=== PATIENT | female | born 1990 | race Caucasian/White ===

== ENCOUNTER 2018-09-20 09:31 | Emergency (ER) | payer MEDICAID ==
[~2018-09-20] VITALS: Ht 165.1 cm; Wt 59.7 kg
[2018-09-20 09:42] VITALS: RESP 18; Ht 165.1 cm; Wt 59.7 kg
[2018-09-20] MEDS ORDERED: morphine 4 MG/ML VIAL IV STA (11:24)
[2018-09-20] MEDS ORDERED: ONDANSETRON 4 MG INJ IV STA (11:24)
[2018-09-20] MEDS ORDERED: SOD CHLORIDE 0.9% 1,000 ML IV STA (11:24)
[2018-09-20] MEDS ORDERED: IBUP800T48 PO (12:46)
[2018-09-20] MEDS ORDERED: NITR-58 PO (12:47)
--- NOTE | 2018-09-20 12:58 | ERD ---
ER Documentation Chief Complaint Chief Complaint VAG BLEED ,PELVIC PAIN , ONSET LAST NIGHT , 6 WEEKS PREG HPI 27-year-old female presents with vaginal bleeding and pelvic pain. Patient states that she has been bleeding since last night. She is been having pelvic pain since the and was seen at her [facility] on 15 September. Patient's beta quant on the was 436. She is being seen at [facility]. Patient was seen by BEEF CATTLE SPECIALIST Evangelina Schmitz. Denies medical problems. Surgical history: C- section. Social history denies. A0. ROS All systems reviewed and are negative except as per history of present illness. Medications Home Meds Active Scripts Nitrofurantoin Monohyd Macrocr* (Macrobid*) 100 Mg Capsr, 100 MG PO BID for 14 Days, CAP Prov:CHAYA VELASQUEZ PA-C 09/20/18 Ibuprofen* (Motrin*) 800 Mg Tab, 800 MG PO Q6H PRN for PAIN AND OR ELEVATED TEMP, #30 TAB Prov:CHAYA VELASQUEZ PA-C 09/20/18 Allergies Allergies: Coded Allergies: acetaminophen (Verified Allergy, Intermediate, hives, itching redness, 04/06/13) Penicillins (Verified Adverse Reaction, Intermediate, 04/05/13) PMhx/Soc Hx Alcohol Use: No Hx Substance Use: No Hx Tobacco Use: No Smoking Status: Never smoker Physical Exam Vitals Vital Signs Date Temp Pulse Resp B/P (MAP) Pulse Ox O2 O2 Flow FiO2 Time Delivery Rate 09/20/18 79 110/58 13:10 (75) 09/20/18 97.1 100 18 131/62 99 09:42 (85) Physical Exam GENERAL: The patient is well-appearing, well-nourished, in no acute distress HEENT: Atraumatic. Conjunctivae are pink. Pupils equal, round, and reactive to light. There is no scleral icterus. Tympanic membranes clear bilaterally. Oropharynx clear. CHEST: Clear to auscultation bilaterally. There are no rales, wheezes or rhonchi. HEART: Regular rate and rhythm. No murmurs, clicks, rubs or gallops. ABDOMEN:Soft, nontender and nondistended. Good bowel sounds. No rebound or guarding. No gross peritonitis. No gross organomegaly or masses. BACK: No midline or flank tenderness. PELVIC: Passing clots. No pooling of blood. Result Diagram: 09/20/18 1029 Results 24 hrs Laboratory Tests Test 09/20/18 10:29 White Blood Count 9.9 10^3/ul Red Blood Count 4.73 10^6/ul Hemoglobin 13.9 g/dl Hematocrit 40.4 % Mean Corpuscular Volume 85.4 fl Mean Corpuscular Hemoglobin 29.4 pg Mean Corpuscular Hemoglobin Concent 34.4 g/dl Red Cell Distribution Width 11.9 % Platelet Count 352 10^3/UL Mean Platelet Volume 9.3 fl Immature Granulocytes % 0.400 % Neutrophils % 68.4 % Lymphocytes % 24.8 % Monocytes % 4.7 % Eosinophils % 1.1 % Basophils % 0.6 % Nucleated Red Blood Cells % 0.0 /100WBC Immature Granulocytes # 0.040 10^3/ul Neutrophils # 6.8 10^3/ul Lymphocytes # 2.5 10^3/ul Monocytes # 0.5 10^3/ul Eosinophils # 0.1 10^3/ul Basophils # 0.1 10^3/ul Nucleated Red Blood Cells # 0.0 10^3/ul Urine Color RED Urine Clarity SLIGHTLY CLOUDY Urine pH 7.0 Urine Specific [place] 1.008 Urine Ketones NEGATIVE mg/dL Urine Nitrite NEGATIVE mg/dL Urine Bilirubin NEGATIVE mg/dL Urine Urobilinogen NEGATIVE mg/dL Urine Leukocyte Esterase 1+ Artemio/ul Urine Microscopic RBC > 182 /HPF Urine Microscopic WBC 141 /HPF Urine Squamous Epithelial Cells FEW /HPF Urine Hemoglobin 3+ mg/dL Urine Glucose 1+ mg/dL Urine Total Protein 2+ mg/dl Beta HCG, Quantitative 301.5 mIU/ml Current Medications Medications Dose Sig/Urban Start Time Status Last (Trade) Ordered Route PRN Stop Time Admin Dose Reason Admin Sodium 1,000 ml @ Q1H STAT 09/20/18 DC 09/20/18 Chloride 1,000 mls/hr IV 11:24 09/20/18 11:39 12:23 Morphine 4 mg ONCE STAT 09/20/18 DC 09/20/18 Sulfate IV 11:24 09/20/18 11:39 (morphine) 11:25 Ondansetron 4 mg ONCE STAT 09/20/18 DC 09/20/18 HCl (Zofran IV 11:24 09/20/18 11:39 Inj) 11:25 Procedures/[facility] DIAGNOSTIC IMAGING REPORT Patient: RAI ROSADO : 1990 Age: 27 Sex: F MR #: [id number] DOS: 09/20/18 1020 Ordering MD: VERONICA VELASQUEZ PA-C Location: [facility] Room/Bed: PROCEDURE: US Pelvis. CLINICAL INDICATION: vaginal bleeding TECHNIQUE: Multiple sonographic images of the pelvis were obtained utilizing a transabdominal and endovaginal technique. The images were reviewed on a PACS workstation. COMPARISON: None. FINDINGS: Limited study due to the patient's inability to cooperate. The uterus is normal in size and demonstrates a heterogeneous appearance of the myometrium. The uterus measures 7.7 x 4.7 cm in size. The endometrial stripe is homogeneous in appearance and has the thickness of 10 mm. No intrauterine gestation is noted. The right ovary is normal and measures 2.8 x 2.3 x 2.0 cm. There is normal Doppler flow. The left ovary is not visualized. There is a small amount of free fluid adjacent to the right ovary RPTAT: AA IMPRESSION: No intrauterine gestation visualized. Left ovary not visualized. Small amount of free fluid adjacent to the right ovary. Differential diagnosis includes early , missed or ectopic . Follow-up ultrasound and HCG levels is recommended. MDM: 27-year-old female presenting with vaginal bleeding. I spoke with the nurse practitioner at [facility] and patient was seen on Sep 15 with a beta quant of 436. Patient's beta quant levels have dropped to 301 today. Patient likely has incomplete . Patient's tenderness is in the suprapubic region which is likely associated with urinary tract infection and miscarriage. I have considered ectopic however low suspicion given beta quant levels are decreasing and exam is non-concerning. Patient has a follow-up appointment with [facility] tomorrow for close evaluation. Patient is discharged with strict ER precautions and told to follow-up with primary care and [facility]. All questions answered at discharge. Patient is hemodynamically stable vitals are stable. Patient does not require RhoGam injection as she is Rh+. Departure Diagnosis: Primary Impression: Miscarriage Condition: Stable Patient Instructions: Understanding Urinary Tract Infections (UTIs), Miscarriage (Incomplete) Referrals: [facility] [id number] [facility] [address] [place] [address] OFFICE FAX , [facility] [address] [place] [address] DR. VELAZQUEZ, [place] [address] [place] [address] DR APARICIO, [facility] [address] [facility], [address] [address] DR RIVERS, [facility] [address] [facility], [place] [address] [facility] [address] [place] [address] [phone] [facility] [address] - [facility] [address], [place] [address] DR CHURCH, [facility] [address] [facility]. [address], [place] [address] [address] [facility] [address] [place], [place] [id number] Additional Instructions: FOLLOW UP WITH YOUR PRIMARY CARE PHYSICIAN TOMORROW.Return to this facility if you are not improving as expected. CHAYA VELASQUEZ PA-C Sep 20, 2018 12:58
[2018-09-20 13:10] VITALS: BP 110/58; PULSE 79
== END 2018-09-20 13:13 | disposition home or self-care (01) ==
LOC: FTE 09:31
DX: O20.0 Threatened abortion (principal); Z3A.01 Less than 8 weeks gestation of pregnancy
CPT/HCPCS: 76801; 76817; 81001; 84702; 85025; 86900; 86901; 96361; 96374; 96375; J2270; J2405; J7030; Z7502

== ENCOUNTER 2019-03-01 17:43 | Emergency (ER) | payer MEDICAID ==
[~2019-03-01] VITALS: Ht 167.6 cm; Wt 56.3 kg
[~2019-03-01 17:43] MED LIST: IBUP800T48 PO; METO10TA92 PO; NITR-58 PO
[2019-03-01 17:47] VITALS: Ht 167.6 cm; Wt 56.3 kg
[2019-03-01] MEDS ORDERED: METOCLOPRAMIDE 10 MG INJ IV ONE (19:00)
[2019-03-01] MEDS ORDERED: SOD CHLORIDE 0.9% 1,000 ML IV ONE (19:00)
[2019-03-01] MEDS ORDERED: POTASSIUM CHLORIDE (SR) 20 MEQ TAB PO STA (19:52)
--- NOTE | 2019-03-01 20:00 | ERD ---
ER Documentation Chief Complaint Chief Complaint AP w/ vomiting, 3 months . referred by PMD for IVF HPI 28-year-old female with no reported past medical surgical history currently 14 weeks by LMP who presents with worsening vomiting from PMDs office. Patient states having 2-3 times a day nonbilious nonbloody vomiting. Has some vague epigastric pain off and on. Has not been able to can consistently keep down solid foods. States she is lost a little bit of weight over the past month. She had similar issues during her second which resolved following the first trimester. Saw her PMD about a month ago and started on Zofran medication. States Zofran has not helped much with her symptoms. She otherwise denies chest pain, shortness of breath, dyspnea, vaginal bleeding, or any other concerning symptoms. ROS All systems reviewed and are negative except as per history of present illness. Medications Home Meds Active Scripts Nitrofurantoin Monohyd Macrocr* (Macrobid*) 100 Mg Capsr, 100 MG PO BID for 14 Days, CAP Prov:CHAYA VELASQUEZ PA-C 09/20/18 Ibuprofen* (Motrin*) 800 Mg Tab, 800 MG PO Q6H PRN for PAIN AND OR ELEVATED TEMP, #30 TAB Prov:CHAYA VELASQUEZ PA-C 09/20/18 Allergies Allergies: Coded Allergies: acetaminophen (Verified Allergy, Intermediate, hives, itching redness, 04/06/13) Penicillins (Verified Adverse Reaction, Intermediate, 04/05/13) PMhx/Soc History of Surgery: Yes Hx Alcohol Use: No Hx Substance Use: No Hx Tobacco Use: No Smoking Status: Never smoker FmHx Family History: No diabetes, No coronary disease, No other Physical Exam Vitals Vital Signs Date Temp Pulse Resp B/P (MAP) Pulse Ox O2 O2 Flow FiO2 Time Delivery Rate 03/01/19 98.6 60 16 105/71 98 17:47 (82) Physical Exam I have reviewed the triage vital signs. Const: Well nourished, well developed, appears stated age Eyes: PERRL, no conjunctival injection HENT: NCAT, Neck supple without meningismus CV: RRR, Warm, well-perfused extremities RESP: CTAB, Unlabored respiratory effort GI: soft, non-tender, non-distended, no masses MSK: No gross deformities appreciated Skin: Warm, dry. No rashes Neuro: grossly non focal Psych: Appropriate mood and affect. Result Diagram: 03/01/191857 Results 24 hrs Laboratory Tests Test 03/01/19 18:58 Urine Color YELLOW Urine Clarity SLIGHTLY CLOUDY Urine pH 7.0 Urine Specific [place] 1.015 Urine Ketones 1+ mg/dL Urine Nitrite NEGATIVE mg/dL Urine Bilirubin NEGATIVE mg/dL Urine Urobilinogen NEGATIVE mg/dL Urine Leukocyte Esterase NEGATIVE Artemio/ul Urine Microscopic RBC 1 /HPF Urine Microscopic WBC 1 /HPF Urine Squamous Epithelial Cells FEW /HPF Urine Mucus FEW /HPF Urine Hemoglobin NEGATIVE mg/dL Urine Glucose 1+ mg/dL Urine Total Protein NEGATIVE mg/dl Sodium Level 135 mmol/L Potassium Level 3.3 mmol/L Chloride Level 103 mmol/L Carbon Dioxide Level 25 mmol/L Anion Gap 7 Blood Urea Nitrogen 6 mg/dl Creatinine 0.49 mg/dl Est Glomerular Filtrat Rate mL/min > 60 mL/min Glucose Level 118 mg/dl Calcium Level 9.3 mg/dl Total Bilirubin 0.3 mg/dl Direct Bilirubin 0.00 mg/dl Indirect Bilirubin 0.3 mg/dl Aspartate Amino Transf (AST/SGOT) 18 IU/L Alanine Aminotransferase (ALT/SGPT) 21 IU/L Alkaline Phosphatase 39 IU/L Total Protein 7.1 g/dl Albumin 3.9 g/dl Globulin 3.20 g/dl Albumin/Globulin Ratio 1.21 Current Medications Medications Dose Sig/Urban Start Time Status Last (Trade) Ordered Route PRN Stop Time Admin Dose Reason Admin Sodium 1,000 ml @ Q30M ONCE 03/01/19 DC 03/01/19 Chloride 2,000 mls/hr IV 19:00 19:02 03/01/19 19:29 10 mg ONCE ONCE 03/01/19 DC 03/01/19 Metoclopramid IV 19:00 19:01 e HCl 03/01/19 19:01 (Reglan) Procedures/MDM 20-year-old female presents with symptoms consistent with hyperemesis gravidarum. On exam she does not appear dehydrated. I have low suspicion for any acute process warranting further emergent care other than documented below. Patient is otherwise healthy and does not appear dehydrated and I feel she does not warrant admission to the hospital at this time. ED course: 2 L of IV fluids, potassium noted to be 3.3, replaced with 40 M EQ of potassium, other lites stable, We will discharge patient with Reglan, advised patient to stop Zofran medication, advised to follow-up with her PMD/OBGYN DISPOSITION PLAN: We discussed follow up with the patient's primary care doctor within 24 to 48 hours. Patient counseled regarding my diagnostic impression and care plan. Prior to discharge all questions answered. Pt agrees with treatment plan and understands strict return precautions. Precautionary instructions provided including instructions to return to the ER if not improving or for any worsening or changing symptoms or concerns. Disclaimer: Inadvertent spelling and grammatical errors are likely due to EHR/dictation software use and do not reflect on the overall quality of patient care. Also, please note that the electronic time recorded on this note does not necessarily reflect the actual time of the patient encounter. Departure Diagnosis: Primary Impression: Hyperemesis gravidarum Condition: Stable ARYA MACHUCA PA-C Mar 01, 2019 20:00
[2019-03-01 21:08] VITALS: BP 109/72; PULSE 64; RESP 17
== END 2019-03-01 21:08 | disposition home or self-care (01) ==
LOC: FTE 17:43
DX: O21.0 Mild hyperemesis gravidarum (principal); R10.9 Unspecified abdominal pain; Z3A.14 14 weeks gestation of pregnancy
CPT/HCPCS: 36415; 80053; 81001; 87086; 96374; J2765; J7030; Z7502; Z7610; 81003